=== PATIENT | born 1990 | race Caucasian/White ===

== ENCOUNTER 2022-01-23 13:52 | Emergency (ER) | payer BC, SELFPAY ==
--- NOTE | ~2022-01-23 | XR_ITS ---
EXAMINATION: XR CHEST CLINICAL INFORMATION: Chest pain COMPARISON: None TECHNIQUE: 2 views of the chest were obtained. FINDINGS: No significant abnormality is noted involving the heart, lungs, mediastinum, bony thorax or soft tissues. XR/XR chest 2V IMPRESSION: Unremarkable examination.
--- NOTE | ~2022-01-23 | CT_ITS ---
EXAMINATION: CT HEAD WITHOUT CONTRAST CLINICAL INFORMATION: Headache, family history of aneurysm COMPARISON: None TECHNIQUE: Contiguous axial imaging was performed from the skull base to vertex without intravenous administration of contrast. This CT examination was performed using dose optimization techniques as appropriate, variously including the following: *Automated exposure control *Adjustment of mA and/or kV according to patient size (this includes techniques or standardized protocols for targeted exams where dose is matched to indication/reason for exam; i.e. extremities or head) *Use of iterative reconstruction technique DLP: 516 mGy-cm FINDINGS: There is no evidence of acute intracranial hemorrhage or territorial infarction. No abnormal mass-effect or midline shift is seen. [place] to white matter differentiation is well preserved. No extra-axial fluid collections are identified. The ventricles are normal in size. There is no abnormal attenuation within the brain parenchyma. Of note, there is inadequate assessment for aneurysm without intravenous contrast. The osseous structures and soft tissues are normal. The mastoid air cells are well-aerated. There is nearly complete opacification of the visualized paranasal sinuses. CT/CT head/brain wo IV con IMPRESSION: No acute intracranial pathology. Diffuse paranasal sinus opacification.
[2022-01-23 14:00] VITALS: BP 147/94; PULSE 81; RESP 18; TEMP 36.6; O2SAT 100; BMI 19.0
--- NOTE | 2022-01-23 14:02 | ECG_ITS ---
Test Reason : CHEST PAIN Blood Pressure : / mmHG Vent. Rate : 079 BPM Atrial Rate : 079 BPM P-R Int : 134 ms QRS Dur : 080 ms QT Int : 372 ms P-R-T Axes : 066 071 052 degrees QTc Int : 426 ms Normal sinus rhythm with sinus arrhythmia Normal ECG No previous ECGs available Referred By: Generic ED Physician Electronically Signed By:HATTIE ADKINS
--- NOTE | 2022-01-23 14:07 | ED_ITS ---
HPI - General Adult General Chief complaint: General Medical Stated complaint: L side neck tension/Headache/L side chest tightnes Time Seen by Provider: 01/23/22 14:06 Source: patient Mode of arrival: ambulatory Limitations: no limitations History of Present Illness HPI narrative: Patient is a 31 year old female presenting to the emergency department today with left sided headache, neck pain, and chest pain. Patient states that since 5pm yesterday, she has been having left sided headache, neck pressure, and intermittent chest pressure. Patient states that she has a history of chronic sinusitis and asthma for which she takes multiple medications. Patient denies any dizziness, lightheadedness, abdominal pain, nausea, vomiting, fever, chills, blurry vision, double vision, loss of vision, difficulty breathing, shortness of breath, back pain, night sweats, pain with urination, increased urinary f requency, increased urinary urgency, blood in her urine or stool, syncope or a near syncopal episode, recent trauma or falls, bowel incontinence, bladder incontinence, bowel retention, bladder retention, or any other complaints at this time. Patient states that she did recently get a COVID-19 vaccination. Onset (ago): day(s) (1) Location: head, neck and chest Radiation: non-radiation Severity: mild Severity scale (1-10): 3 Quality: aching and dull Relieving factors: none Exacerbating factors: none Associated symptoms: chest pain and headaches Treatments prior to arrival: none Related Data Previous Rx's Medication Instructions Recorded prednisone 20 mg tablet 20 mg PO DAILY 12 days #26 tabs 01/23/22 Allergies Allergy/AdvReac Type Severity Reaction Status Date / Time acetaminophen Allergy Unknown Verified 01/23/22 13:59 aspirin [ASA] Allergy Unknown Verified 01/23/22 13:59 levofloxacin [From Levaquin] Allergy Rash Verified 01/23/22 13:59 NSAIDS (Non-Steroidal Allergy Unknown Verified 01/23/22 13:59 Anti-Inflamma Review of Systems Constitutional: Constitutional: Reports no additional constitutional complaints, Denies chills, Denies fever(s), Reports headache(s) and Denies night sweats Eyes: Eyes: Reports no additional eye complaints, Denies blurry vision, Denies change in vision, Denies diplopia, Denies eye discharge, Denies loss of vision and Denies eye pain ENT: Denies dizziness, Reports headache(s) and Reports neck pain Cardiovascular: Cardiovascular: Reports no additional cardiovascular complaints, Reports chest pain, Denies lightheadedness, Denies Loss of Consciousness and Denies dyspnea Respiratory: Respiratory: Reports no additional respiratory complaints and Denies dyspnea Gastrointestinal: Gastrointestinal: Reports no additional gastrointestinal complaints, Denies abdominal pain, Denies melena, Denies hematochezia, Denies change in bowel habits and Denies change in stool character Genitourinary: Genitourinary: Reports no additional male genitourinary complaints, Denies hematuria, Denies oliguria, Denies difficulty urinating, Denies dysuria, Denies urinary frequency, Denies urinary hesitancy, Denies urinary incontinence and Denies urinary urgency Genitourinary: Denies he maturia, Denies urinary frequency, Denies dysuria, Denies urinary incontinence, Denies urinary hesitancy and Denies urinary urgency Musculoskeletal: Musculoskeletal: Reports no additional musculoskeletal complaints, Reports neck pain, Denies numbness and Denies tingling Neurologic: Denies dizziness, Reports headache(s), Denies loss of vision, Denies numbness and Denies tingling Psychiatric: Psychiatric: Reports no additional psychiatric complaints Endocrine: Endocrine: Reports no additional endocrine complaints Hematologic/Lymphatic: Hematologic/Lymphatic: Reports no additional hematologic/lymphatic complaints Allergic/Immunologic: Allergic/Immunologic: Reports no additional allergic/immunologic complaints PMFSH Past Medical History Attestation statement: The following information was validated with the patient. Source: old records reviewed Social History Social History Advance Directives: Yes Advance Directives Information Provided: Yes Advance Directives on File: No Physical Exam ED Vital Signs: Vital Signs - 24 hr 01/23/22 14:00 01/23/22 16:28 Temperature 97.8 F 98.2 F Pulse Rate 81 71 Respiratory Rate 18 16 Blood Pressure 147/94 116/79 Pulse Oximetry 100 98 Oxygen Delivery Method Room Air Room Air BMI result Body Mass Index 19.0 Const General: cooperative, no acute distress, alert and awake Nutritional Appearance: well nourished Orientation/consciousness: patient oriented x3 Limitations: no limitations HENMT Head: Yes normal to inspection and Yes atraumatic Ears: hearing grossly normal bilaterally and external ears normal General nose exam: Normal external nose present, no nasal discharge noted and no epistaxis Face and sinus: Yes normal facial exam, No abrasion and No laceration Mouth: Normal oral and palatal mucosa present, no drooling and no muffled voice Eyes General: appearance normal, both eyes and all related structures Periorbital: periorbital findings normal Eyelids: Yes eyelids normal Conjunctivae: conjunctivae normal Pupils: Equal, round and reactive pupils present EOM: EOMs intact bilaterally Neck Neck: Yes normal visual inspection, Yes full ROM and Yes no lymphadenopathy Chest Chest palpation & inspection: normal inspection of the chest Resp Effort & Inspection: normal respiratory effort and able to speak in complete sentences Auscultation: clear to auscultation bilaterally Cardio Rate: regular rate Rhythm: regular rhythm GI Inspection: Yes normal to inspection Neuro General: patient oriented x3 and moves all extremities Cranial nerves: Yes Equal, round and reactive pupils present Cognition (Neuro): normal cognition Motor exam (neuro): 5/5 motor strength present throughout Sensory Exam: Normal double simultaneous stimulation for sensation Coordination: onohos-ih-itmn test normal Extrem General: Yes normal to inspection, Yes full ROM and Yes capillary refill normal Psych Appearance: grossly normal Mental Status: mental status grossly normal Affect: normal affect Attitude: cooperative Thought process: Normal thought process present Thought content: Normal thought content present Insight: Good insight present (Psych) Medical Decision Making MDM Narrative Medical decision making narrative: Patient is a 31 year old female presenting to the emergency department today with left sided headache, neck pain, and chest pain. Patient's physical exam was unremarkable. Patient's blood work was unremarkable. Patient's EKG was unremarkable. Patient's chest x-ray and head CT showed no acute process. Ben platt's clinical presentation is most consistent with musculoskeletal pain, likely secondary to an inflammatory response from her recent COVID-19 vaccine. I explained my physical exam findings as well as all test results to the patient. I answered all questions asked by the patient. I stressed the importance of the patient taking her medication as prescribed. I stressed the importance of the patient following up with her primary care provider. I stressed the importance of the patient returning to the emergency department immediately if her symptoms were to worsen or if she were to develop any dizziness, shortness of breath, difficulty breathing, chest pain, blurry vision, loss of vision, nausea, vomiting, abdominal pain, fever, chills, back pain, or any other complaints. Patient verbalized agreement and understanding with this treatment plan and discharge. Medical Records Medical records reviewed: Yes I reviewed the patient's medical records. Lab Data Lab results reviewed: Yes I reviewed the patient's lab results. Result diagrams: 01/23/22 14:34 01/23/22 14:34 Labs: Lab Results 01/23/22 01/23/22 01/23/22 Range/Units 14:34 14:34 14:34 WBC 7.4 X10*3/uL RBC 4.19 X10*6/uL Hgb 13.3 g/dl Hct 39.5 % MCV 94.3 fL MCH 31.7 pg MCHC 33.7 g/dl RDW 11.7 (11.0-16.0) % Plt Count 258 X10*3/uL MPV 9.7 (9.4-12.4) fL Immature Gran % (Auto) 0.3 (0.0-0.4) % Neut % (Auto) 51.7 % Lymph % (Auto) 24.9 % Shannon % (Auto) 7.5 % Eos % (Auto) 13.7 % Baso % (Auto) 1.9 % Lymph # (Auto) 1.9 X10*3/uL Shannon # (Auto) 0.6 X10*3/uL Eos # (Auto) 1.0 X10*3/uL Baso # (Auto) 0.1 X10*3/uL Abs Immat Gran (auto) 0.02 (0.00-0.03) X10*3/uL Absolute Neuts (auto) 3.9 x10*3/uL Absolute Nucleated RBC 0.000 (0.0-0.012) X10*3/uL Nucleated RBC % (auto) 0.0 (0.0-0.2) /100WBC Sodium 140 mmol/L Potassium 4.1 mmol/L Chloride 105 mmol/L Carbon Dioxide 26 mmol/L Anion Gap 13 BUN 9 mg/dL Creatinine 0.72 mg/dL Estim Creat Clear Calc TNP Estimated GFR > 60 Random Glucose 86 mg/dL Calcium 9.3 mg/dL Magnesium 2.0 mg/dL Total Bilirubin 0.4 mg/dL AST 12 U/L ALT 9 U/L Alkaline Phosphatase 52 U/L Troponin I High Sens < 3.5 ng/L Total Protein 6.9 g/dL Albumin 4.4 g/dL COVID-19 ([facility]) COVID-19 Clin Com 01/23/22 Range/Units 15:47 WBC X10*3/uL RBC X10*6/uL Hgb g/dl Hct % MCV fL MCH pg MCHC g/dl RDW (11.0-16.0) % Plt Count X10*3/uL MPV (9.4-12.4) fL Immature Gran % (Auto) (0.0-0.4) % Neut % (Auto) % Lymph % (Auto) % Shannon % (Auto) % Eos % (Auto) % Baso % (Auto) % Lymph # (Auto) X10*3/uL Shannon # (Auto) X10*3/uL Eos # (Auto) X10*3/uL Baso # (Auto) X10*3/uL Abs Immat Gran (auto) (0.00-0.03) X10*3/uL Absolute Neuts (auto) x10*3/uL Absolute Nucleated RBC (0.0-0.012) X10*3/uL Nucleated RBC % (auto) (0.0-0.2) /100WBC Sodium mmol/L Potassium mmol/L Chloride mmol/L Carbon Dioxide mmol/L Anion Gap BUN mg/dL Creatinine mg/dL Estim Creat Clear Calc Estimated GFR Random Glucose mg/dL Calcium mg/dL Magnesium mg/dL Total Bilirubin mg/dL AST U/L ALT U/L Alkaline Phosphatase U/L Troponin I High Sens ng/L Total Protein g/dL Albumin g/dL COVID-19 ([facility]) Negative COVID-19 Clin Com See Note Imaging Data Chest x-ray: Attestation: I personally reviewed and interpreted this imaging study as follows: My impression: No acute process. Radiologist's impression: EXAMINATION: XR CHEST CLINICAL INFORMATION: Chest pain COMPARISON: None TECHNIQUE: 2 views of the chest were obtained. FINDINGS: No significant abnormality is noted involving the heart, lungs, mediastinum, bony thorax or soft tissues. XR/XR chest 2V IMPRESSION: Unremarkable examination. Dictated By: Onel Horton MD Signed By: Electronically signed by Onel Horton MD 01/23/[address] scan - head: Attestation: I personally reviewed and interpreted this imaging study as follows: My impression: No acute process. Radiologist's impression: EXAMINATION: CT HEAD WITHOUT CONTRAST CLINICAL INFORMATION: Headache, family history of aneurysm? COMPARISON: None TECHNIQUE: Contiguous axial imaging was performed from the skull base to vertex without intravenous administration of contrast. This CT examination was performed using dose optimization techniques as appropriate, variously including the following: *Automated exposure control *Adjustment of mA and/or kV according to patient size (this includes techniques or standardized protocols for targeted exams where dose is matched to indication/reason for exam; i.e. extremities or head) *Use of iterative reconstruction technique DLP: 516 mGy-cm FINDINGS: There is no evidence of acute intracranial hemorrhage or territorial infarction. No abnormal mass-effect or midline shift is seen. [place] to white matter differentiation is well preserved. No extra-axial fluid collections are identified. The ventricles are normal in size. There is no abnormal attenuation within the brain parenchyma. Of note, there is inadequate assessment for aneurysm without intravenous contrast. The osseous structures and soft tissues are normal. The mastoid air cells are well-aerated. There is nearly complete opacification of the visualized paranasal sinuses. CT/CT head/brain wo IV con IMPRESSION: No acute intracranial pathology. Diffuse paranasal sinus opacification. Dictated By: Addy Don MD Signed By: Electronically signed by Addy Don MD 01/23/22 [id number] ECG Data Attestation: I personally reviewed and interpreted this ECG as follows: Prior ECG tracings: not available for review Interpretation: Vent. Rate: 079 BPM ? ? Atrial Rate: 079 BPM P-R Int: 134 ms? QRS Dur: 080 ms QT Int: 372 ms ? ? ? P-R-T Axes: 066 071 052 degrees QTc Int: 426 ms ? Normal sinus rhythm with sinus arrhythmia Normal ECG No previous ECGs available DD/ 1405 Discharge Plan Discharge Clinical Impression: Inflammatory pain Patient Disposition: Home, Self-Care Instructions: Musculoskeletal Pain (ED), Neck Pain (ED) Additional Instructions: Follow up with your primary care provider. Return to the emergency department immediately if your symptoms worsen or if you develop any dizziness, shortness of breath, difficulty breathing, chest pain, blurry vision, loss of vision, nausea, vomiting, abdominal pain, fever, chills, back pain, or any other complaints. Prescriptions: New prednisone 20 mg tablet 20 mg PO DAILY 12 Days Qty: 26 0RF Rx Instructions: Take 3 tablets for 5 days THEN; Take 2 tablets for 4 days THEN; Take 1 tablet for 3 days Referrals: Eufemia Sweet [employer]URE DIRECTOR [Primary Care Provider] - Interventions: ED Discharge Assessment Last Done: 01/23/22 16:48 Print Language: Tajik
[2022-01-23 14:43] LABS: MANUAL DIFF FLAG NO
[2022-01-23 14:45] LABS: Basophils Absolute Auto 0.1 X10*3/uL; Basophils Percent Auto 1.9 %; Eosinophils Percent Auto 13.7 %; Hematocrit 39.5 %; Hemoglobin 13.3 g/dl; Imm Gran Abs Auto 0.02 X10*3/uL (0.00-0.03); Imm Gran Pct Auto 0.3 % (0.0-0.4); Lymphocytes Absolute Auto 1.9 X10*3/uL; Lymphocytes Percent Auto 24.9 %; Mean Corpuscular HGB Conc 33.7 g/dl; Mean Corpuscular Hemoglobin 31.7 pg; Mean Corpuscular Volume 94.3 fL; Mean Platelet Volume 9.7 fL (9.4-12.4); Monocytes Absolute Auto 0.6 X10*3/uL; Monocytes Percent Auto 7.5 %; Neutrophils Absolute Auto 3.9 x10*3/uL; Neutrophils Percent Auto 51.7 %; Platelet Count 258 X10*3/uL; Red Blood Count 4.19 X10*6/uL; Red Cell Distribution Width 11.7 % (11.0-16.0); White Blood Count 7.4 X10*3/uL
[2022-01-23 15:00] LABS: Alanine Aminotransferase 9 U/L; Albumin Level 4.4 g/dL; Alkaline Phosphatase 52 U/L; Anion Gap 13; Aspartate Amino Transferase 12 U/L; Bilirubin Total 0.4 mg/dL; Blood Urea Nitrogen 9 mg/dL; Calcium 9.3 mg/dL; Carbon Dioxide 26 mmol/L; Chloride 105 mmol/L; Estimated Glomerular Filt Rate > 60; Glucose Random 86 mg/dL; Potassium 4.1 mmol/L; Sodium 140 mmol/L; Total Protein 6.9 g/dL
[2022-01-23 15:06] LABS: Troponin-I High Sensitivity < 3.5 ng/L
[2022-01-23 16:24] LABS: COVID-19 Test Negative; IDNOW Serial# 16C4AD1C
[2022-01-23 16:28] VITALS: BP 116/79; PULSE 71; RESP 16; TEMP 36.8; O2SAT 98
== END 2022-01-23 16:49 | disposition home or self-care (01) ==
PROVIDERS: Physician Assistant Medical; Emergency Provider Emergency Medicine; PCP Nurse Practitioner Family
DX: M54.2 Cervicalgia (principal); M54.50 Low back pain, unspecified; R51.9 Headache, unspecified; R07.89 Other chest pain; Z20.822 Contact with and (suspected) exposure to COVID-19; Z79.899 Other long term (current) drug therapy
CPT/HCPCS: 70450; 71046; 80053; 83735; 84484; 85025; 87635; 93005; 99284

== ENCOUNTER 2023-02-25 14:44 | Emergency (ER) | payer BC, SELFPAY ==
--- NOTE | ~2023-02-25 | CT_ITS ---
EXAMINATION: CT ABDOMEN AND PELVIS WITH CONTRAST CLINICAL INFORMATION: Right upper quadrant abdominal pain COMPARISON: None available. TECHNIQUE: Multidetector volumetric images were obtained from the superior aspect of the liver through the pubic symphysis following administration 85 mL of Omnipaque 350 intravenous contrast. Sagittal and coronal reformatted images were obtained on the technologist's workstation. Oral contrast: No This CT examination was performed using dose optimization techniques as appropriate, variously including the following: *Automated exposure control *Adjustment of mA and/or kV according to patient size (this includes techniques or standardized protocols for targeted exams where dose is matched to indication/reason for exam; i.e. extremities or head) *Use of iterative reconstruction technique DLP: 273 mGy-cm FINDINGS: LUNG BASES: There is a right lower lobe posterior basal consolidation on partially visualized images. LIVER, GALLBLADDER, AND BILIARY TREE: The liver is normal in size, shape, and attenuation. No focal hepatic lesion or biliary ductal dilatation is present. The gallbladder is unremarkable with no evidence of radiopaque gallstones, gallbladder wall thickening, or obvious pericholecystic inflammatory changes. PANCREAS: Unremarkable. SPLEEN: Unremarkable. ADRENAL GLANDS: Unremarkable. KIDNEYS AND URETERS: The kidneys are normal in size, shape, and attenuation. No hydronephrosis, hydroureter, or calculi seen. No perinephric stranding. BLADDER: Unremarkable. GASTROINTESTINAL TRACT: There is moderate stool seen throughout the colon without significant distention. The small bowel loops are normal caliber. ABDOMINAL WALL: No significant hernia is appreciated. LYMPH NODES: Normal. VASCULAR: Unremarkable. PELVIC VISCERA: Unremarkable. OSSEOUS STRUCTURES: Unremarkable. CT/CT abdomen pelvis w IV con IMPRESSION: No acute process seen in the abdomen. Mild constipation. Fleischner guidelines were followed.
--- NOTE | ~2023-02-25 | US_ITS ---
EXAMINATION: US ABDOMEN LIMITED CLINICAL INFORMATION: Right upper quadrant pain and tenderness. COMPARISON: None available. TECHNIQUE: Real-time imaging of the right upper quadrant abdominal viscera. FINDINGS: PANCREAS: Normal. LIVER: Normal. The liver is normal in size. The liver contour is normal. Parenchymal echogenicity is normal. No focal hepatic lesion. There is no intrahepatic biliary duct dilatation seen. GALLBLADDER: Positive Leung's sign. The gallbladder is physiologically distended without evidence of stones, sludge, polyps, wall thickening or pericholecystic fluid. COMMON BILE DUCT: Normal in caliber measuring 0.2 cm in diameter. RIGHT KIDNEY: Normal. No hydronephrosis. No renal calculi or focal parenchymal lesions. The kidney measures 10 cm in maximum dimension. FREE FLUID: None. US/US abdomen limited IMPRESSION: Isolated positive Leung's sign with otherwise normal sonographic appearance of the gallbladder. Findings are fairly nonspecific in isolation, correlate clinically and if indicated further imaging with CT or HIDA could be obtained.
[2023-02-25 15:12] VITALS: BP 150/88; PULSE 125; RESP 20; TEMP 37.6; O2SAT 100; BMI 18.5
--- NOTE | 2023-02-25 15:36 | ED.ABDPAIN ---
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 She reports flu-like symptoms yesterday evening, including fever between 100-101 and generalized body aches. She states she has had nausea leading to vomiting twice, the most recent being today. She states her abdomen has felt distended and bloated. She states her pain is severe and is on and off in severity. She denies abdominal pain in remaining quadrants, pelvic pain, or flank pain. She denies urinary symptoms. Her last bowel movement was yesterday, patient reports diarrhea. She is unaware if food makes the pain better or worse due to not eating today. She denies nausea currently. Patient has a gallbladder. Related Data Previous Rx's Medication Instructions Recorded prednisone 20 mg tablet 20 mg PO DAILY 12 days #26 tabs 01/23/22 tramadol 50 mg tablet 50 mg PO TID PRN severe pain 02/25/23 (scale score 7-10) #12 tabs Allergies Allergy/AdvReac Type Severity Reaction Status Date / Time acetaminophen Allergy Unknown Verified 01/23/22 13:59 aspirin [ASA] Allergy Unknown Verified 01/23/22 13:59 levofloxacin [From Levaquin] Allergy Rash Verified 01/23/22 13:59 NSAIDS (Non-Steroidal Allergy Unknown Verified 01/23/22 13:59 Anti-Inflamma Review of Systems Constitutional: Reports body ache(s), Reports chills, Reports fever(s) and Reports malaise Denies nasal congestion and Denies nasal discharge Cardiovascular: Denies Epigastric Pain and Denies dyspnea Respiratory: Denies cough and Denies dyspnea Gastrointestinal: Reports abdominal pain, Reports bloating, Denies hematochezia, Denies constipation, Denies heartburn, Reports diarrhea, Reports nausea and Reports vomiting Genitourinary: Denies dysuria, Denies flank pain and Denies urinary urgency Genitourinary: Denies dysuria, Denies flank pain and Denies urinary urgency PMFSH Social History Social History Advance Directives: No Advance Directives Information Provided: No Patient : No Physical Exam ED Vital Signs: Vital Signs - 24 hr 02/25/23 15:12 02/25/23 19:46 Temperature 99.7 F 100.2 F Pulse Rate 125 104 Respiratory Rate 20 18 Blood Pressure 150/88 125/65 Pulse Oximetry 100 100 Oxygen Delivery Method Room Air Room Air BMI result Body Mass Index 18.5 Const General: healthy appearing and no acute distress Orientation/consciousness: patient oriented x3 Limitations: no limitations HENMT Head: Yes normocephalic and Yes atraumatic Mouth: oropharynx normal and moist mucous membranes Throat: Yes posterior oropharynx normal Eyes Conjunctivae: conjunctivae normal Sclerae: sclerae normal Corneas: corneas normal Pupils: Equal, round and reactive pupils present Resp Effort & Inspection: normal respiratory effort and able to speak in complete sentences Auscultation: clear to auscultation bilaterally Cardio Rate: regular rate Rhythm: regular rhythm GI Inspection: Yes normal to inspection and No distended Palpation (GI): Soft to palpation, not firm, Tenderness to palpation present (GI) in the RUQ and Leung's sign positive, Guarding due to palpation present (GI) in the RUQ and not rigid General: No CVA tenderness Back/Spine/Pelvis Back: No CVA tenderness Neuro General: patient oriented x3 Cranial nerves: Yes Equal, round and reactive pupils present Course Course Course Narrative: This is an RME: Additional HPI, ROS, PE not included below will be deferred to primary provider. 32 yo f presents w/ RUQ pain & epigastric pain, tearful Plan- US, labs, UA Reevaluation(s) Reevaluation #1: CT imaging of the abdomen shows mild constipation, no other significant abnormalities. I discussed this as well as rest the workup with the patient at bedside. Patient reports feeling somewhat better after IV fluids, analgesia. She will be discharged home with symptomatic care including tramadol and Zofran. Time: 21:12 Medical Decision Making Medical Decision Making MDM Narrative: 32-year-old biologically female patient presents for evaluation of upper abdominal pain. She has right upper quadrant tenderness to even light palpation with guarding. Positive Leung sign. Her white count is 19.1 K. Her total bilirubin is elevated to 1.9 but otherwise LFTs within normal limits. Patient had ultrasound of her right upper quadrant was ordered in triage which shows positive Leung sign but otherwise unremarkable examination. Given the patient's significant discomfort and guarding will get a CT scan of the abdomen pelvis. Depending on results will consider admission for HIDA scan. Patient also reporting flu-like symptoms so will get a flu swab. She was negative for COVID Differential Diagnosis Differential Diagnoses: The differential diagnosis associated with the presentation includes cholecystitis gastroenteritis cholethiliasis choledocholithiasis influenza Admission/Observation Consideration of admission/observation: Escalation of care including admission/observation considered Considered admission for HIDA scan verses ERCP/MRCP. Discussed with my attending, Dr Talbot reviewed the workup and discussed that since the patient's direct bilirubin is normal, and therefore the indirect bilirubin is elevated this is less likely to be obstructive pathology. This is backed up by the fact the patient's AST, ALT, alk-phos are also within normal limits in imaging shows no evidence of obstruction. Lab Data MDM Lab Attestation statement: I reviewed the patient's lab results. (Patient has a leukocytosis to 19.1 K with a left shift. No significant electrolyte abnormalities. The patient's bilirubin is elevated to 1.9 but otherwise her AST and ALT are within normal limits.) 02/25/23 16:33 02/25/23 16:34 Labs: Lab Results 02/25/23 02/25/23 02/25/23 Range/Units 16:33 16:34 16:39 WBC 19.1 X10*3/uL RBC 4.30 X10*6/uL Hgb 13.9 g/dl Hct 39.4 % MCV 91.6 fL MCH 32.3 pg MCHC 35.3 g/dl RDW 11.8 (11.0-16.0) % Plt Count 193 X10*3/uL MPV 9.9 (9.4-12.4) fL Immature Gran % (Auto) 0.5 H (0.0-0.4) % Neut % (Auto) 87.7 % Lymph % (Auto) 4.8 % [place] % (Auto) 6.8 % Eos % (Auto) 0.0 % Baso % (Auto) 0.2 % Lymph # (Auto) 0.9 X10*3/uL [place] # (Auto) 1.3 X10*3/uL Eos # (Auto) 0.0 X10*3/uL Baso # (Auto) 0.0 X10*3/uL Abs Immat Gran (auto) 0.10 H (0.00-0.03) X10*3/uL Absolute Neuts (auto) 16.7 x10*3/uL Absolute Nucleated RBC 0.000 (0.0-0.012) X10*3/uL Nucleated RBC % (auto) 0.0 (0.0-0.2) /100WBC Sodium 135 mmol/L Potassium 4.0 mmol/L Chloride 101 mmol/L Carbon Dioxide 23 mmol/L Anion Gap 15 BUN 11 mg/dL Creatinine 0.69 mg/dL Estim Creat Clear Calc TNP Estimated GFR > 60 Random Glucose 107 mg/dL Calcium 10.3 mg/dL Total Bilirubin 1.9 mg/dL Direct Bilirubin 0.6 mg/dL AST 13 U/L ALT 9 U/L Alkaline Phosphatase 60 U/L Total Protein 8.2 g/dL Albumin 4.6 g/dL Lipase 19 U/L Urine Color Dark Yellow Urine Appearance Clear Urine pH 6.0 (5.0-9.0) Ur Specific [place] >= 1.030 H (1.005-1.025) Urine Protein 100 (2+) H (Neg-Trace) mg/dL Urine Glucose (UA) Negative (Negative) mg/dL Urine Ketones >=160 (Negative) mg/dL Urine Blood Small (1+) (Negative) Urine Nitrite Negative (Negative) Ur Leukocyte Esterase Small (1+) H (Negative) Urine RBC 11-20 H (0-2) /HPF Urine WBC 11-20 H (0-5) /HPF Ur Squamous Epith Cells 3-5 (0-2) /HPF Urine Bacteria Trace (None Seen) Hyaline Casts 0-2 (0-2) /LPF Urine Test NEGATIVE (NEGATIVE) COVID-19 (EVELIN) Negative COVID-19 Clin Com See Note Influenza Type A (MAME) Influenza Type B (MAME) Influenza A & B Note 02/25/23 Range/Units 19:48 WBC X10*3/uL RBC X10*6/uL Hgb g/dl Hct % MCV fL MCH pg MCHC g/dl RDW (11.0-16.0) % Plt Count X10*3/uL MPV (9.4-12.4) fL Immature Gran % (Auto) (0.0-0.4) % Neut % (Auto) % Lymph % (Auto) % [place] % (Auto) % Eos % (Auto) % Baso % (Auto) % Lymph # (Auto) X10*3/uL [place] # (Auto) X10*3/uL Eos # (Auto) X10*3/uL Baso # (Auto) X10*3/uL Abs Immat Gran (auto) (0.00-0.03) X10*3/uL Absolute Neuts (auto) x10*3/uL Absolute Nucleated RBC (0.0-0.012) X10*3/uL Nucleated RBC % (auto) (0.0-0.2) /100WBC Sodium mmol/L Potassium mmol/L Chloride mmol/L Carbon Dioxide mmol/L Anion Gap BUN mg/dL Creatinine mg/dL Estim Creat Clear Calc Estimated GFR Random Glucose mg/dL Calcium mg/dL Total Bilirubin mg/dL Direct Bilirubin mg/dL AST U/L ALT U/L Alkaline Phosphatase U/L Total Protein g/dL Albumin g/dL Lipase U/L Urine Color Urine Appearance Urine pH (5.0-9.0) Ur Specific [place] (1.005-1.025) Urine Protein (Neg-Trace) mg/dL Urine Glucose (UA) (Negative) mg/dL Urine Ketones (Negative) mg/dL Urine Blood (Negative) Urine Nitrite (Negative) Ur Leukocyte Esterase (Negative) Urine RBC (0-2) /HPF Urine WBC (0-5) /HPF Ur Squamous Epith Cells (0-2) /HPF Urine Bacteria (None Seen) Hyaline Casts (0-2) /LPF Urine Test (NEGATIVE) COVID-19 (EVELIN) COVID-19 Clin Com Influenza Type A (MAME) Negative Influenza Type B (MAME) Negative Influenza A & B Note See Note Radiology Impression Discussion of test interpretation with radiology: I have reviewed the radiologist's reading. (Ultrasound of the right upper quadrant shows positive Leung sign but otherwise unremarkable gallbladder) Radiologist Impression: CT scan significant for mild constipation but no other intra-abdominal pathology Medications Administered Discontinued Medications Generic Name Dose Route Start Last Admin Trade Name Freq PRN Reason Stop Dose Admin Sodium Chloride 1,000 mls @ 999 mls/hr 02/25/23 18:30 02/25/23 19:50 Ns IV 02/25/23 19:30 Infused .[id number] JULIET Infusion Morphine Sulfate 2 mg 02/25/23 18:25 02/25/23 18:40 Morphine Sulfate 2 Mg/Ml Cartridge IVPUSH 02/25/23 18:26 2 mg ONCE ONE Administration Protocol Morphine Sulfate 2 mg 02/25/23 20:01 02/25/23 20:33 Morphine Sulfate 2 Mg/Ml Cartridge IVPUSH 02/25/23 20:02 2 mg ONCE ONE Administration Protocol Discharge Plan Discharge Clinical Impression: Abdominal pain Patient Disposition: Home, Self-Care Instructions: Abdominal Pain (ED) Additional Instructions: Your CT scan showed mild constipation but otherwise no concerning abnormalities. Your ultrasound showed normal gallbladder Your blood work was significant for an elevated white blood cell count which is favored to be related to viral infection and vomiting Take tramadol for severe or breakthrough pain. Use Zofran for nausea or vomiting Tramadol may make you sleepy, did not drink alcohol or drive after taking it Follow-up with your primary doctor, call tomorrow Return for new or worsening symptoms, especially if you are unable tolerate any oral intake, here fever is unable to be controlled or your pain is unbearable Prescriptions: New tramadol 50 mg tablet 50 mg PO TID PRN (Reason: severe pain (scale score 7-10)) Qty: 12 0RF No Action prednisone 20 mg tablet 20 mg PO DAILY 12 Days Qty: 26 0RF Rx Instructions: Take 3 tablets for 5 days THEN; Take 2 tablets for 4 days THEN; Take 1 tablet for 3 days
[2023-02-25 16:38] LABS: MANUAL DIFF FLAG NO
--- NOTE | 2023-02-25 16:40 | MHC.EDTECH ---
Patient blood drawn,covid swab and urine collected all sent to lab .
[2023-02-25 16:41] LABS: Basophils Percent Auto 0.2 %; Hematocrit 39.4 %; Hemoglobin 13.9 g/dl; Imm Gran Pct Auto 0.5 % (0.0-0.4); Lymphocytes Absolute Auto 0.9 X10*3/uL; Lymphocytes Percent Auto 4.8 %; Mean Corpuscular HGB Conc 35.3 g/dl; Mean Corpuscular Hemoglobin 32.3 pg; Mean Corpuscular Volume 91.6 fL; Mean Platelet Volume 9.9 fL (9.4-12.4); Monocytes Absolute Auto 1.3 X10*3/uL; Monocytes Percent Auto 6.8 %; Neutrophils Absolute Auto 16.7 x10*3/uL; Neutrophils Percent Auto 87.7 %; Platelet Count 193 X10*3/uL; Red Cell Distribution Width 11.8 % (11.0-16.0); White Blood Count 19.1 X10*3/uL
[2023-02-25 16:54] LABS: COVID-19 Test Negative; IDNOW Serial# BCCEAD1C
[2023-02-25 16:55] LABS: Alanine Aminotransferase 9 U/L; Albumin Level 4.6 g/dL; Alkaline Phosphatase 60 U/L; Anion Gap 15; Aspartate Amino Transferase 13 U/L; Bilirubin Direct 0.6 mg/dL; Bilirubin Total 1.9 mg/dL; Blood Urea Nitrogen 11 mg/dL; Calcium 10.3 mg/dL; Carbon Dioxide 23 mmol/L; Chloride 101 mmol/L; Estimated Glomerular Filt Rate > 60; Glucose Random 107 mg/dL; Lipase 19 U/L; Sodium 135 mmol/L; Total Protein 8.2 g/dL
[2023-02-25 16:55] LABS: Appearance Urine Clear; Color Urine Dark Yellow; Glucose Urine UA Negative (Negative); Leukocyte Esterase Urine Small (1+) (Negative); Nitrite Urine Negative (Negative); Specific Gravity - Urine >= 1.030 (1.005-1.025); UMIC TRIGGER UACC YES; Urine Blood Small (1+) (Negative); Urine Ketones >=160 mg/dL (Negative); Urine Protein 100 (2+) mg/dL (Neg-Trace)
[2023-02-25 16:57] LABS: UPreg QC Valid YES; Urine Pregnancy NEGATIVE (NEGATIVE)
[2023-02-25 16:58] LABS: Bacteria Urine Trace (None Seen); Hyaline Casts Urine 0-2 /LPF (0-2); UACC Culture Trigger YES
[2023-02-25] MEDS: Morphine Sulfate 2 MG/ML CARTRIDGE IVPUSH ×2 (18:40→20:33)
[2023-02-25] MEDS: 0.9 % Sodium Chloride 1,000 ML 999 ML IV (18:41)
--- NOTE | 2023-02-25 18:59 | PC.NURSE ---
assumed care of patient at 1900
[2023-02-25 19:46] VITALS: BP 125/65; PULSE 104; RESP 18; TEMP 37.9; O2SAT 100
[2023-02-25 20:18] LABS: IDNOW Serial# 6674DD1D; Influenza A Negative; Influenza B2 Negative
[2023-02-25 21:20] LABS: Lactic Acid 0.8 mmol/L
== END 2023-02-25 21:36 | disposition home or self-care (01) ==
PROVIDERS: Physician Assistant; Physician Assistant Medical; Emergency Provider Student in an Organized Health Care Education/Training Program; PCP Nurse Practitioner Family
DX: R10.11 Right upper quadrant pain (principal); R50.9 Fever, unspecified; M79.10 Myalgia, unspecified site; R11.2 Nausea with vomiting, unspecified; Z11.52 Encounter for screening for COVID-19; Z20.822 Contact with and (suspected) exposure to COVID-19; Z79.899 Other long term (current) drug therapy
CPT/HCPCS: 36415; 74177; 76705; 80048; 80076; 81001; 81025; 83605; 83690; 85025; 87040; 87086; 87502; 87635; 96361; 96374; 96375; 99284; J2270